=== PATIENT | female | born 1935 | race Caucasian/White ===

== ENCOUNTER 2023-05-26 13:49 | Outpatient (OUT) | payer BC, SELFPAY ==
--- NOTE | 2023-05-26 | XR_ITS ---
[facility] [place] [id number] Patient Name: PAIGE ALCOCER MRN: [id number] date: 1935 Sex: F Assigned Patient Location: [facility] Current Patient Location: Accession/Order Number: [id number] Exam Date: 05/26/2023 02:30 Report Date: 05/27/2023 00:23 At the request of: BERNABE OSUNA Procedure: XR foot LT min 3V PROCEDURE: XR foot LT min 3V HISTORY: LEFT FOOT BUMP ON TOE ; chronic bump on third toe COMPARISON: None. FINDINGS: BONES:No fracture, acute abnormality, or significant arthropathy. SOFT TISSUES:No visible soft tissue swelling. EFFUSION:None visible. OTHER: Negative. XR/XR foot LT min 3V IMPRESSION: 1. No abnormal or suspicious findings to account for patient's symptoms, with specific attention to the third toe. Electronically authenticated by: JASON BROWN Date: 05/27/2023 00:23
== END 2023-05-26 13:50 | disposition home or self-care (01) ==
LOC: RAD 13:51
PROVIDERS: Visit Provider Podiatrist Foot & Ankle Surgery
DX: L98.9 Disorder of the skin and subcutaneous tissue, unspecified (principal)
CPT/HCPCS: 73630

== ENCOUNTER 2023-06-12 11:56 | Outpatient (OUT) | payer MEDICARE, SELFPAY ==
--- NOTE | 2023-06-12 12:59 | CA_ITS ---
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 (right ANDI 0.79) Normal arterial evaluation of the LLE without hemodynamic impairment of the LLE at rest. (left ANDI 1.10) Electronically Signed On 06-14-2023 20:29:44 EST by CARROLL DOVER
== END 2023-06-12 11:57 | disposition home or self-care (01) ==
PROVIDERS: Visit Provider Podiatrist Foot & Ankle Surgery
DX: R09.89 Other specified symptoms and signs involving the circulatory and respiratory systems (principal)
CPT/HCPCS: 93923

== ENCOUNTER 2023-07-22 12:14 | Outpatient (OUT) | payer MEDICARE, SELFPAY ==
--- NOTE | 2023-07-22 13:25 | P.GSHP_ITS ---
History of Present Illness History of Present Illness Chief complaint: ganglion left foot Narrative: Patient presents for preadmission testing. The patient reports a growth on her 3rd toe which is painful. She states it's worse when she is wearing shoes. She denies any injury, trauma, numbness, tingling, or any other complaints. Review of Systems ROS Narrative REVIEW OF SYSTEMS: Negative except as stated in HPI, ten or more systems reviewed. Constitutional: No fever , chills, weakness ENT: No sore throat or epistaxis Cardiovascular: No edema, chest pain, palpitations, or activity intolerance Respiratory: No shortness of breath, cough, or wheezing Gastrointestinal: No abdominal pain, constipation, diarrhea, or vomiting Genitourinary: No dysuria or hematuria Neurological: No numbness, tingling, weakness, or headache Psychiatric: No mood changes [facility] Medical History (Updated 07/22/23 @ 08:44 by Jayde Ko RN) Ganglion, left ankle and foot ?M67.472 - Ganglion, left ankle and foot (ICD-10) Stroke ?I63.9 - Cerebral infarction, unspecified (ICD-10) High cholesterol ?E78.00 - Pure hypercholesterolemia, unspecified (ICD-10) Hypertension ?I10 - Essential (primary) hypertension (ICD-10) Surgical History (Updated 07/22/23 @ 13:00 by Carla Bueno NP) History of colonoscopy ?Z98.890 - Other specified postprocedural states (ICD-10) History of endarterectomy ?Z98.890 - Other specified postprocedural states (ICD-10) History of cataract surgery ?Z98.49 - Cataract extraction status, unspecified eye (ICD-10) History of right hip replacement ?Z96.641 - Presence of right artificial hip joint (ICD-10) Family History (Updated 07/22/23 @ 13:00 by Carla Bueno NP) Other Family history of hypertension Family history of myocardial infarction Family history of stroke Heart disease Social History (Updated 07/22/23 @ 12:52 by Carla Bueno NP) Within the past year, how often did you have a drink containing alcohol: 2-4 times a month Smoking status: Never smoker Highest level of school completed/degree received: high school graduate Meds Home Medications and Allergies Home Medications Medication Instructions Recorded Confirmed Type amlodipine 5 mg tablet 5 mg PO DAILY 07/22/23 07/22/23 History aspirin 81 mg tablet,delayed 81 mg PO DAILY 07/22/23 07/22/23 History release (Adult Aspirin Regimen) atorvastatin 10 mg tablet 10 mg PO DAILY 07/22/23 07/22/23 History calcium carbonate 600 mg-vitamin 1 tab PO BID 07/22/23 07/22/23 History D3 5 mcg (200 unit) tablet (Calcium 600 + D(3)) escitalopram oxalate 10 mg tablet 10 mg PO DAILY 07/22/23 07/22/23 History lisinopril 20 1 tab PO DAILY 07/22/23 07/22/23 History mg-hydrochlorothiazide 25 mg tablet multivitamin (Daily Multi-Vitamin 1 tab PO DAILY 07/22/23 07/22/23 History tablet) omega 0-zex-rip-fish oil 1,000 mg 1 cap PO DAILY 07/22/23 07/22/23 History (120 mg-180 mg) capsule (Fish Oil) oxazepam 10 mg capsule 10 mg PO DAILY PRN anxiety 07/22/23 07/22/23 History vit A 7,160 unit-C 113 mg-E 100 tab PO 07/22/23 History jtmx-vwvs-ribplp tablet,delayed rel. Allergies Allergy/AdvReac Type Severity Reaction Status Date / Time Penicillins Allergy Unknown Verified 07/22/23 12:50 Exam Narrative Exam Narrative: Constitutional: Awake, alert, comfortable, well-appearing, nontoxic, interactive, vital signs as charted Head: Normocephalic, atraumatic Neck: Supple, normal appearance, normal range of motion, no meningeal signs, no lymphadenopathy Respiratory: No respiratory distress, breath sounds clear Cardiovascular: Regular rate and rhythm, strong and regular heart tones Musculoskeletal: Normal gait, no swelling or edema, Left foot tenderness overlying the 3rd digit with fullness noted, good capillary refill, sensation intact Skin: No rashes or induration, no lesions, only visible skin inspected Neuro: No neurological deficits, normal sensation Psychiatric: Oriented ?3, normal affect Assessment and Plan Assessment and Plan (1) Ganglion, left ankle and foot: Plan Excision of soft tissue mass left 3rd toe with correction of toe contracture as needed scheduled with Dr. Pina 07/30/2023.
[2023-07-22 14:19] LABS: Anion Gap 12.9; BUN Creatinine Ratio 12.2; Carbon Dioxide 27.8 mmol/L (21.0-32.0); Chloride 97 mmol/L (98-107); Estimated GFR (African America >60 (>=60); Estimated GFR (Non-African Ame >60 (>=60); Glucose 95 mg/dL (74-106); Potassium 3.7 mmol/L (3.5-5.1); Sodium 134 mmol/L (136-145)
== END 2023-07-22 12:15 | disposition home or self-care (01) ==
LOC: PST 12:14
PROVIDERS: Visit Provider Podiatrist Foot & Ankle Surgery
DX: Z01.812 Encounter for preprocedural laboratory examination (principal); Z01.818 Encounter for other preprocedural examination; M67.472 Ganglion, left ankle and foot
CPT/HCPCS: 36415; 80048; G0463

== ENCOUNTER 2023-07-30 08:04 | Day surgery (SDC) | payer MEDICARE, SELFPAY ==
[2023-07-22 13:20] VITALS: BP 170/80; PULSE 68; RESP 18; TEMP 36.3; O2SAT 96; BMI 28.9
[2023-07-30] VITALS (9 sets, daily range): BP systolic 136–164; BP diastolic 51–82; PULSE 72–85; RESP 14–18; TEMP 36.1–36.3; O2SAT 94–97; BMI 29.0
[2023-07-30] MEDS: LACTATED RINGER'S SOLUTION 1,000 ML 50 ML IV ×2 (08:45→10:14)
--- NOTE | 2023-07-30 09:37 | PM.ORONB ---
Brief Operative Note Date of procedure: 07/30/23 Pre-op diagnosis: Left 3rd toe soft tissue mass, with hammertoe Post-op diagnosis: other (Left 3rd toe mucoid cyst >1.5 cm) Procedure: procedure performed: Excision of digital mucoid cyst >1.5 cm & correction of hammertoe, left 3rd toe Indications for procedure: Patient is an 88-year-old female who presents me for a painful soft tissue lesion on her left 3rd toe which is been present for over a year. Patient related that the mass causes rubbing on the toe associated with pain. She attempted padding and shoe modification without help and after consultation she wished to proceed with surgical excision. She is educated all potential risks and benefits. Specifically, given the size and location of the painful nodule on the dorsal left 3rd toe she is at high risk for postoperative wound as well as recurrence. She also has contracture of the 3rd toe which may be contributing to her symptoms. intraoperative findings: 1.7 cm lesion on dorsal 3rd DIP J with viscous fluid and raised 0.4 cm. reducible contracture of the 3rd toe. No signs of infection Procedure in detail: Patient was identified in pre op and consent was reviewed. Correct side and site were identified and marked. Pre-op antibiotics were started. Patient was brought to OR suite and place on table in a supine position. General anesthesia was administered. Tourniquet applied. Operative extremity was prepped and draped in usual sterile fashion. Formal time-out was performed and the foot/ankle were exsanguinated and tourniquet inflated. With attention to the 3rd digit a semi-elliptical dorsal incision was created over the DIPJ allowing the soft tissue mass which measured 1.7 cm to be excised. The mass did not extend into deeper soft tissues or to bone and was limited to skin and skin structures. Sharp and blunt dissection down to the extensor tendon was performed. The tendon was incised transversely then reflected proximally. A sagittal saw was used to remove the middle phalanx head. The site was flushed with sterile saline. The tendon was repaired with absorbable suture. the tourniquet was deflated with a prompt hyperemic response and the skin was closed in layers. A dry sterile dressing and surgical shoe were then applied. Patient tolerated the procedure and anesthesia well and had brisk capillary refill to the operative toe. Postoperative plan: Discharge home under family's care Post op instructions provided verbally and written prescription(s) were placed in chart WBAT operative foot in surgical shoe x3 wks or until skin has healed Follow-up in 1 week Implants: none Surgeon: Sung Pina Surgical Services Director: Raphael Arevalo Estimated blood loss (mL): 10 Pathology: other (Skin/soft tissue lesion) Condition: stable Disposition: PACU
[2023-07-30] MEDS: CEFAZOLIN SODIUM/DEXTROSE,ISO 2 GM/50 ML PIGGYBACK IV (09:54)
[2023-07-30] MEDS: BUPIVACAINE HCL 0.5% PF 50 MG/10 ML VIAL INJ (10:36)
--- NOTE | 2023-07-30 11:08 | XR_ITS ---
The [address] [address] Patient Name: PAIGE ALCOCER MRN: [id number] date: 1935 Sex: F Assigned Patient Location: [facility] Current Patient Location: Accession/Order Number: [id number] Exam Date: 07/30/2023 11:30 Report Date: 07/30/2023 12:59 At the request of: MELIA XIE Procedure: XR foot LT min 3V 3 views of the left foot INDICATION: Postop COMPARISON: 05/26/2023 XR/XR foot LT min 3V IMPRESSION: No acute fracture or dislocation. Apparent partial resection of the third digit middle phalanx with intact margins. 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 Mild calcaneal enthesopathy. Soft tissues are grossly unremarkable. Electronically authenticated by: RC TRAN Date: 07/30/2023 12:59
[2023-07-30 11:16] LABS: Glucometer 112 mg/dL (74-106)
== END 2023-07-30 12:07 | disposition home or self-care (01) ==
PROVIDERS: Visit Provider Podiatrist Foot & Ankle Surgery
PROC: (CPT 28041; principal; 2023-07-30 09:10)
DX: M20.42 Other hammer toe(s) (acquired), left foot (principal); M67.472 Ganglion, left ankle and foot; Z86.73 Personal history of transient ischemic attack (TIA), and cerebral infarction without residual deficits; E78.00 Pure hypercholesterolemia, unspecified; I10 Essential (primary) hypertension; Z98.49 Cataract extraction status, unspecified eye; Z96.641 Presence of right artificial hip joint; Z98.890 Other specified postprocedural states; Z79.899 Other long term (current) drug therapy; Z79.82 Long term (current) use of aspirin
CPT/HCPCS: 28041; 28285; 36415; 73630; 82948; 88305; J0665; J0690; J2405; J2704